=== PATIENT | female | born 1975 | race Caucasian/White ===

== ENCOUNTER → 2023-07-27 13:08 | Outpatient (REF) | payer BC, SELFPAY | LOC: WDC 13:08 | PROVIDERS: ATTENDING PHYSICIAN Nurse Practitioner | DX: Z12.31 Encounter for screening mammogram for malignant neoplasm of breast (principal) | CPT/HCPCS: 77063; 77067 ==

== ENCOUNTER → 2023-08-24 15:08 | Outpatient (REF) | payer BC, SELFPAY | LOC: RAD 15:08 | PROVIDERS: ATTENDING PHYSICIAN Nurse Practitioner | DX: M54.12 Radiculopathy, cervical region (principal); M54.2 Cervicalgia | CPT/HCPCS: 72052 ==

== ENCOUNTER → 2024-01-17 06:18 | Day surgery (SDC) | payer BC, SELFPAY | LOC: GI 06:18 | PROVIDERS: ATTENDING PHYSICIAN Internal Medicine Gastroenterology | DX: Z12.11 Encounter for screening for malignant neoplasm of colon (principal); Z80.0 Family history of malignant neoplasm of digestive organs; K64.4 Residual hemorrhoidal skin tags; K57.30 Diverticulosis of large intestine without perforation or abscess without bleeding; K64.8 Other hemorrhoids | CPT/HCPCS: G0121 ==

== ENCOUNTER → 2024-07-30 15:16 | Outpatient (REF) | payer BC, SELFPAY | LOC: RAD 15:16 | PROVIDERS: ATTENDING PHYSICIAN Obstetrics & Gynecology; FAMILY PHYSICIAN Nurse Practitioner | DX: R19.03 Right lower quadrant abdominal swelling, mass and lump (principal) | CPT/HCPCS: 76830; 76856 ==

== ENCOUNTER → 2024-07-31 07:37 | Outpatient (REF) | payer BC, SELFPAY | LOC: WDC 07:37 | PROVIDERS: ATTENDING PHYSICIAN Obstetrics & Gynecology; FAMILY PHYSICIAN Nurse Practitioner | DX: Z12.31 Encounter for screening mammogram for malignant neoplasm of breast (principal) | CPT/HCPCS: 77063; 77067 ==

== ENCOUNTER → 2024-08-15 09:22 | Outpatient (REF) | payer BC, SELFPAY | LOC: WDC 09:22 | PROVIDERS: ATTENDING PHYSICIAN Obstetrics & Gynecology; FAMILY PHYSICIAN Nurse Practitioner | DX: R92.8 Other abnormal and inconclusive findings on diagnostic imaging of breast (principal) | CPT/HCPCS: 76642 ==

== ENCOUNTER → 2024-08-22 11:08 | Outpatient (REF) | payer BC, SELFPAY ==
--- NOTE | 2024-08-22 16:07 | OID.BR.INTR ---
[facility] Breast Navigator - Initial
- -
Date of Contact: 08/22/24
Met with patient. Patient given written information on navigator service available at [facility]. Will follow up as needed per protocol.
== END ==
LOC: WDC 11:08
PROVIDERS: ATTENDING PHYSICIAN Obstetrics & Gynecology
DX: N63.10 Unspecified lump in the right breast, unspecified quadrant (principal)
CPT/HCPCS: 88305; 19083; 88341; 88342; 88360; A4648

== ENCOUNTER → 2024-09-06 19:15 | Outpatient (REF) | payer BC, SELFPAY | LOC: MRI 3T 19:15 | PROVIDERS: ATTENDING PHYSICIAN Surgery; FAMILY PHYSICIAN Nurse Practitioner | DX: C50.911 Malignant neoplasm of unspecified site of right female breast (principal); Z80.3 Family history of malignant neoplasm of breast; R92.2 Inconclusive mammogram | CPT/HCPCS: 77049; A9585 ==

== ENCOUNTER → 2024-09-17 11:14 | Outpatient (REF) | payer BC, SELFPAY | LOC: WDC 11:14 | PROVIDERS: ATTENDING PHYSICIAN Surgery; FAMILY PHYSICIAN Nurse Practitioner | DX: C50.911 Malignant neoplasm of unspecified site of right female breast (principal) | CPT/HCPCS: 19285; 38792; 76942; A4648; A9541 ==

== ENCOUNTER 2024-09-18 06:31 | Day surgery (SDC) | payer BC, SELFPAY ==
[2024-09-05 11:09] LABS: Hematocrit 39.6 % (37.0-47.0); Hemoglobin 13.9 g/dL (12.0-16.0); Mean Corp Hgb Conc. 35.1 g/dL (33.0-37.0); Mean Corpuscular Hgb 32.2 pg (27.0-31.0); Mean Corpuscular Volume 91.7 fL (81.0-99.0); Mean Platelet Volume 10.1 fL (7.4-10.4); Platelet Count 364 10^3/uL (130-400); Red Blood Cell Count 4.32 10^6/uL (4.20-5.40); Red Cell Dist. Width 11.6 % (11.5-14.5); White Blood Cell Count 5.8 10^3/uL (4.8-10.8)
[2024-09-05 11:53] LABS: ALT (SGPT) 19 U/L (0-35); AST (SGOT) 23 U/L (14-36); Albumin 4.4 g/dl (3.5-5.0); Alkaline Phosphatase 53 U/L (38-126); Blood Urea Nitrogen 14 mg/dl (7-17); Calcium 9.4 mg/dl (8.4-10.2); Carbon Dioxide 25 mmol/L (22-30); Chloride 107 mmol/L (98-107); Glucose 82 mg/dl (70-99); Potassium 4.7 mmol/L (3.5-5.1); Sodium 138 mmol/L (135-145); Total Bilirubin 0.5 mg/dl (0.2-1.3); Total Protein 7.1 g/dl (6.3-8.2); eGFR > 60.00
[2024-09-05 12:00] LABS: Prealbumin (Transthyretin) 20.5 mg/dl (17.6-36.0)
[2024-09-05 12:37] LABS: FSH 8.5 mIU/ml
[2024-09-05 13:32] VITALS: BMI 27.0
[2024-09-18 09:57] VITALS: BMI 27.0
[2024-09-18 10:01] VITALS: BP 115/73
[2024-09-18] MEDS: NORMOSOL-R/PLASMALYTE-A 1000 IV (10:14)
[2024-09-18] MEDS: TYLENOL 1000 MG PO (10:14)
[2024-09-18] MEDS: LOVENOX 40 MG SC (10:38)
[2024-09-18 13:18] VITALS: BP 95/51
[2024-09-18 13:30] VITALS: BP 95/54
[2024-09-18 13:45] VITALS: BP 95/56
--- NOTE | 2024-09-18 18:03 | W.IMMPOSTOP ---
Surgical Immed Post Op Note
-
Primary Surgeon: Gama
Assisting Surgeon: None
Pre-op Diagnosis: Right breast ca
Post-op Diagnosis: Right breast ca
Procedure Performed: Right localized lumpectomy, sentinel lymph node mapping and biopsy
Anesthesia Type: TIVA
Specimen / Cultures: Right lumpectomy, margins, sentinel nodes
Estimated Blood Loss: 10cc
Complications: None
Operative Findings: Neg nodes; clip, reflector and mass in specimen
--- NOTE | 2024-09-18 18:05 | OR.RPT ---
Operative Report
Operative Report
Date of surgery: 09/18/24
Surgeon: Gama
Preoperative diagnosis: Right breast carcinoma
Postoperative diagnosis: Right breast carcinoma
Procedure: Right localized lumpectomy, sentinel lymph node mapping and biopsy
Indication for surgery: The patient is a 49-year-old female with image detected right breast cancer, early stage with favorable immunohistochemistry who presents for breast conservation surgery.
Patient presented to same-day surgical services. She verified site and procedure and was prepped. DVT and antibiotic prophylaxis were provided. She was taken to the operating room and in the supine position intravenous sedation was delivered.
Right breast and axilla were prepped and draped in usual sterile fashion. All staff members performed an appropriate timeout.
All tissues were anesthetized with 1% lidocaine plain. Curvilinear incision was made inferior to the hairline overlying the area of highest external gamma count. Dissection was carried through clavipectoral fascia using the cautery. 2 sentinel
node packets were encountered and excised. Feeding vessels were tied with 3-0 silk. After their removal there was a greater than 4 fold reduction of background count. Hemostasis was verified. Marcaine 0.5% plain was instilled into all tissues
and the wound was closed using simple interrupted 3-0 plain on deep intermediate and subcutaneous tissue and skin was closed with a running subcuticular 4-0 Monocryl.
Attention was turned to the lumpectomy where a medial circumareolar incision was made sharply. Oncoplastic plane was entered and developed using the PlasmaBlade. Any larger vessels were tied and controlled with 3-0 silk tie. Cori probe was used
to identify the signal and a wide lumpectomy was performed. Time of the body was noted and the specimen was oriented for the pathologist. Specimen radiography confirmed the presence of the mass, clip, and reflector within it. Additional margins
were harvested for permanent analysis from the posterior, medial, superior, lateral, inferior, and anterior dimensions. These were oriented as well.Hemostasis was verified. Marcaine 0.5% plain was instilled and a portion of Surgicel was placed in
the resection cavity. Hemoclips were also placed. This wound was closed in the same fashion as the axilla.
Surgical glue and sterile compressive dressings were applied. All sponge needle and instrument counts were correct and the patient was transferred to the recovery room in stable condition.
([id number])
Jackson Node Bx Breast Cancer
Jackson Node Bx Breast Cancer
Operation performed with curative intent: Yes
Tracer(s) to ID Jackson Nodes in Non-Neoadjuvant setting: Radioactive Tracer
Tracer(s) to ID Sentinal Nodes in the Neoadjuvant Setting: N/A
All nodes at end of dye-filled Lymphatic Channel removed: N/A
All Significantly Radioactive Nodes were removed: Yes
All Palpably Suspicious Nodes were Removed: Yes
Bx Proven Pos Nodes Marked Prior to Chemo ID'd & Removed: N/A
== END 2024-09-18 14:29 | disposition home or self-care (01) ==
LOC: SDS 06:31
PROVIDERS: ATTENDING PHYSICIAN Surgery; FAMILY PHYSICIAN Nurse Practitioner; REFERRING PHYSICIAN Obstetrics & Gynecology
DX: C50.911 Malignant neoplasm of unspecified site of right female breast (principal)
CPT/HCPCS: 38525; 19301; 38900; 88305; 88307; 88332; 36415; 76098; 80053; 82306; 83001; 84134; 85027; 88331; 88341; 88342; 93005